=== PATIENT | female | born 1955 | race Caucasian/White ===

== ENCOUNTER 2020-01-20 09:10 | Outpatient (REF) | payer OTHER, SELFPAY | END 2020-01-20 09:11 | disposition home or self-care (01) | LOC: HO.LAB 09:10 | PROVIDERS: PCP Nurse Practitioner Family; Visit Provider Internal Medicine | DX: Z20.828 Contact with and (suspected) exposure to other viral communicable diseases (principal) | CPT/HCPCS: 87635 ==

== ENCOUNTER 2020-03-09 06:53 | Outpatient (REF) | payer OTHER, SELFPAY | END 2020-03-09 06:54 | disposition home or self-care (01) | LOC: HO.LAB 06:53 | PROVIDERS: Visit Provider Internal Medicine | DX: Z20.828 Contact with and (suspected) exposure to other viral communicable diseases (principal) | CPT/HCPCS: C9803; U0003 ==

== ENCOUNTER 2020-04-01 06:06 | Outpatient (REF) | payer OTHER, SELFPAY | END 2020-04-01 06:07 | disposition home or self-care (01) | LOC: HO.LAB 06:06 | PROVIDERS: PCP Nurse Practitioner Family; Visit Provider Internal Medicine | DX: Z20.828 Contact with and (suspected) exposure to other viral communicable diseases (principal) | CPT/HCPCS: C9803; U0003 ==